=== PATIENT | female | born 1995 | race Caucasian/White ===

== ENCOUNTER 2017-08-04 08:00 | Outpatient (CLI) | payer MEDICAID ==
[2017-08-04 18:53] LABS: BASOPHILS # (AUTO) 0.1 10^3/uL (0.0-0.1); BASOPHILS % (AUTO) 0.5 %; EOSINOPHILS # (AUTO) 0.1 10^3/uL (0.0-0.7); EOSINOPHILS % (AUTO) 0.5 %; HGB - HEMOGLOBIN 11.7 g/dL (12.0-16.0); LYMPHOCYTES # (AUTO) 2.2 10^3/uL (1.5-3.5); LYMPHOCYTES % (AUTO) 15.2 %; MEAN CORPUSCULAR HEMOGLOBIN 29.9 pg (27.0-31.0); MEAN CORPUSCULAR HGB CONC 32.8 g/dL (32.0-36.0); MEAN CORPUSCULAR VOLUME 91.2 fL (81.0-99.0); MEAN PLATELET VOLUME 8.2 fL (7.9-10.8); MONOCYTES # (AUTO) 0.8 10^3/uL (0.0-1.0); MONOCYTES % (AUTO) 5.4 %; NEUTROPHILS # (AUTO) 11.5 10^3/uL (1.5-6.6); NEUTROPHILS % (AUTO) 78.4 %; PLT - PLATELET COUNT 295 10^3/uL (130-450); RED BLOOD COUNT 3.92 10^6/uL (4.20-5.40); RED CELL DISTRIBUTION WIDTH 13.1 % (12.0-15.0); WHITE BLOOD COUNT 14.7 x10^3/uL (4.8-10.8)
[2017-08-04 19:08] LABS: ALBUMIN 3.3 g/dL (3.2-5.5); ALBUMIN/GLOBULIN RATIO 0.9 (1.0-2.2); ALKALINE PHOSPHATASE 103 IU/L (42-121); ALT ALANINE AMINOTRANSFERASE 13 IU/L (10-60); AST ASPARTATE AMINOTRANSFERASE 23 IU/L (10-42); BILIRUBIN,TOTAL 0.5 mg/dL (0.2-1.0); BUN - BLOOD UREA NITROGEN 11 mg/dL (6-20); CALCIUM 9.7 mg/dL (8.5-10.3); CARBON DIOXIDE - CO2 24 mmol/L (21-32); CHLORIDE 101 mmol/L (101-111); CREATININE 0.5 mg/dL (0.4-1.0); GFR - MDRD 154 (>89); GLUCOSE 76 mg/dL (70-100); SODIUM 136 mmol/L (135-145)
== END 2017-08-04 08:01 | disposition home or self-care (01) ==
LOC: LAB.N 08:00
PROVIDERS: ATTEND Family Medicine
DX: Z33.1 Pregnant state, incidental (principal); R03.0 Elevated blood-pressure reading, without diagnosis of hypertension
CPT/HCPCS: 36415; 80053; 84443; 85025

== ENCOUNTER 2017-10-15 12:21 | Emergency (ER) | payer MEDICAID ==
[2017-10-15 12:39] VITALS: BP 147/104
--- NOTE | 2017-10-15 13:40 | ED Physician Documentation ---
History of Present Illness - Stated complaint Stated Complaint: R BREAST PX - Chief complaint Chief Complaint: General - History obtained from History obtained from: Patient - History of Present Illness Timing: Last night Pain level max: 7 Pain level now: 4 Improved by: tylenol Worsened by: nothing - Additonal information Additional information: States R breast pain since last night. Is 6 weeks post . currently breast feeding. Barton chills last night. Vomited x 1. States has headache today as well. Better with tylenol. Review of Systems Constitutional: reports: Fever, Chills Nose: denies: Rhinorrhea / runny nose, Congestion Throat: denies: Sore throat Cardiac: denies: Chest pain / pressure Respiratory: denies: Cough GI: reports: Vomiting Skin: denies: Rash Musculoskeletal: denies: Neck pain, Back pain PD PAST MEDICAL HISTORY - Past Medical History Past Medical History: No - Past Surgical History Past Surgical History: No - Present Medications Home Medications: Ambulatory Orders Medication Instructions Recorded Confirmed Cephalexin [Keflex] 500 mg PO Q6H #40 capsule 10/15/17 - Allergies Allergies/Adverse Reactions: Allergies Allergy/AdvReac Type Severity Reaction Status Date / Time No Known Drug Allergies Allergy Verified 07/20/15 13:25 - Social History Does the pt smoke?: No Smoking Status: Never smoker Does the pt drink ETOH?: No Does the pt have substance abuse?: No - POLST Patient has POLST: No PD ED PE NORMAL - Vitals Vital signs reviewed: Yes - General General: Alert and oriented X 3, No acute distress, Well developed/nourished - HEENT HEENT: PERRL, Moist mucous membranes - Neck Neck: Supple, no meningeal sign - Cardiac Cardiac: RRR, Strong equal pulses - Respiratory Respiratory: No respiratory distress, Clear bilaterally - Abdomen Abdomen: Soft, Non tender, Non distended - Derm Derm: Warm and dry, Other (mild erythema to the R breast. no palpable abscess. ) - Neuro Neuro: Alert and oriented X 3 - Psych Psych: Normal mood, Normal affect Results - Vitals Vitals: Vital Signs - 24 hr 10/15/17 10/15/17 12:37 13:54 Temperature 37.5 C 38.1 C H Heart Rate 109 H Respiratory 16 Rate Blood Pressure 147/104 H O2 Saturation 98 Oxygen O2 Source Room air PD MEDICAL DECISION MAKING - ED course Complexity details: considered differential, d/w patient, d/w family ED course: Patient is a 22-year-old female presents to the emergency department with a right breast mastitis. Will place on Keflex and have her follow-up closely with her [employer]. Will continue breast-feeding. Patient is well-appearing, nontoxic. No evidence of abscess. Patient counseled regarding signs and symptoms for which I believe and urgent re-evaluation would be necessary. Patient with good understanding of and agreement to plan and is comfortable going home at this time This document was made in part using voice recognition software. While efforts are made to proofread this document, sound alike and grammatical errors may occur. Departure - Departure Disposition: 01 Home, Self Care Clinical Impression: Mastitis Condition: Good Instructions: ED Breast Infec Follow-Up: Yesica Newman ARNP [Primary Care Provider] - Within 1 week Prescriptions: Cephalexin [Keflex] 500 mg PO Q6H #40 capsule Comments: Take all antibiotics until gone. Return if you worsen. Continue to breast feed as this will help clear the infection and this is safe for your baby. Discharge Date/Time: 10/15/17 13:57
== END 2017-10-15 13:57 | disposition home or self-care (01) ==
LOC: ED 12:21
DX: N61.0 Mastitis without abscess (principal)
CPT/HCPCS: 99283

== ENCOUNTER 2017-12-09 08:11 | Outpatient (CLI) | payer MEDICAID ==
--- NOTE | 2017-12-09 13:37 | Ultrasound Report ---
EXAM: BLADDER ULTRASOUND, LIMITED EXAM DATE: 12/09/2017 09:49 AM. CLINICAL HISTORY: HX OF UROLITHIASIS, HYPERTENSION. COMPARISON: Previous pelvic ultrasound from 11/21/2015. TECHNIQUE: Real-time scanning was performed with static images obtained. FINDINGS: Prevoid urinary bladder volume is 174, with measurements 4.3 x 8.4 x 9.4 cm. Postvoid, volu me is 0.9 cc, with measurements 1 x 0.7 x 2.6 cm. Bilateral urinary jets were visualized. IMPRESSION: Unremarkable exam of the urinary bladder, without evidence of urolithiasis. [facility] Referring Provider Line: [phone] SITE ID: [id number]
--- NOTE | 2017-12-09 16:00 | Ultrasound Report ---
EXAM: RENAL ARTERY DOPPLER ULTRASOUND EXAM DATE: 12/09/2017 09:49 AM. CLINICAL HISTORY: History of urolithiasis, hypertension. COMPARISON: None. TECHNIQUE: Real-time sonographic vascular imaging was performed by the security and privacy consultant through the renal arterial system with a linear transducer utilizing color-flow, Doppler flow, and spectral analysis. [facility] sales promotion representative static images were saved for review. FINDINGS: Right Kidney: 11.1 x 5.0 x 5.3 cm. There is diffuse increased echogenicity of the renal medullary pyr amids. No stones, contour-deforming masses, or hydronephrosis. Left Kidney: 11.3 x 5.7 x 5.2 cm. There is diffuse increased echogenicity of the renal medullary pyra mids. There is mild hydronephrosis. Multiple tiny nonobstructing calyceal calculi are present. Right renal Doppler: Right Segmental Artery: Upper pole: PSV 52 cm/sec, RI 0.59. Mid pole: PSV 71 cm/sec, RI 0.63. Lower pole: PSV 76 cm/sec, RI 0.65. Right Renal Artery: Origin: PSV 157 cm/sec, RA/AO 0.78. Proximal: PSV 154 cm/sec, RA/AO 0.76. Mid: PSV 112 cm/sec, RA/AO 0.55. Distal: PSV 137 cm/sec, RA/AO 0.68. Aorta PSV: 201 cm/sec. RRV Patent: Yes. Left renal Doppler: Left Segmental Artery: Upper pole: PSV 55 cm/sec, RI 0.60. Mid pole: PSV 54 cm/sec, RI 0.56. Lower pole: PSV 59 cm/sec, RI 0.57. Left Renal Artery: Origin: PSV 91 cm/sec, RA/AO 0.45. Proximal: PSV 140 cm/sec, RA/AO 0.69. Mid: PSV 131 cm/sec, RA/AO 0.65. Distal: PSV 101 cm/sec, RA/AO 0.50. LRV Patent: Yes. IMPRESSION: 1. Diffuse increased echogenicity of the renal medullary pyramids bilaterally. 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 Various metabolic diseases are also in the differential. 2. Mild left-sided hydronephrosis with multiple small nonobstructing calyceal calculi. 3. Normal Doppler ultrasound of the renal arteries. No evidence of renal arterial stenosis. CRITERIA FOR CLASSIFICATION OF RENAL ARTERY (RA) DISEASE BY DUPLEX SCANNING: RA Diameter Reduction/ RA PSV/ RAR: Normal, < 180 cm/sec, < 3.5 < 60%, >= 180 cm/sec, < 3.5 >= 60%, >= 180 cm/sec, >= 3.5 Total Occlusion: Undetectable; Not applicable JAYLA Referring Provider Line: [phone] SITE ID: [id number]
== END 2017-12-09 08:12 | disposition home or self-care (01) ==
LOC: DI 08:11
PROVIDERS: ATTEND Family Medicine
DX: N13.2 Hydronephrosis with renal and ureteral calculous obstruction (principal)
CPT/HCPCS: 76857; 93975

== ENCOUNTER 2019-04-01 14:37 | Outpatient (CLI) | payer MEDICAID ==
[2019-04-01 16:03] LABS: THYROID STIMULATING HORMONE 1.14 uIU/mL (0.34-5.60)
[2019-04-01 16:05] LABS: FREE T4 (FREE THYROXINE) 0.98 ng/dL (0.58-1.64)
[2019-04-01 16:09] LABS: PROLACTIN 12.22 ng/mL
[2019-04-01 16:31] LABS: FOLLICLE STIMULATING HORMONE 5.52 mIU/mL
[2019-04-02 06:47] LABS: ESTRADIOL 43 pg/mL
== END 2019-04-01 14:38 | disposition home or self-care (01) ==
LOC: LAB 14:37
PROVIDERS: ATTEND Obstetrics & Gynecology
DX: N91.1 Secondary amenorrhea (principal)
CPT/HCPCS: 36415; 82626; 82670; 83001; 84146; 84403; 84439; 84443

== ENCOUNTER 2019-05-12 11:15 | Outpatient (CLI) | payer MEDICAID ==
--- NOTE | 2019-05-12 14:37 | Ultrasound Report ---
Reason: POSTIVE TEST Procedure Date: 05/12/2019 Accession Number: [id number] / [id number] Procedure: US - OB First Trimester CPT Code: Final Report FULL RESULT: EXAM: FIRST TRIMESTER OBSTETRIC ULTRASOUND (Less than 11 weeks) EXAM DATE: 05/12/2019 12:03 PM. CLINICAL HISTORY: POSITIVE TEST. LMP: Unknown. COMPARISONS: None available. TECHNIQUE: Transabdominal and transvaginal ultrasound examination with static image documentation. CLINICAL DATES: Cannot estimate because of uncertain LMP ASSESSMENT: Gestational Sac: Single intrauterine. Mean gestational sac diameter: 10.7 mm = 5 weeks 6 days. Embryo: CRL (crown-rump length) 2.5 mm = out of range. Cardiac activity: Visually present but not measurable beats per minute. Yolk sac: 3.9 mm. Amniotic fluid: Not accurately assessed at this gestational age. Early placenta: Not visible at this gestational age. Other: There is a right perigestational collection measuring 2.8 x 0.7 x 0.5 cm. MATERNAL STRUCTURES: Uterus: Appears anteverted and retroflexed. Unremarkable. Cervix: Closed. Right Ovary/Adnexa: The ovary measures 2.8 x 2.1 x 2.1 cm, volume 6.5 cc. Unremarkable. Left Ovary/Adnexa: The ovary measures 3.9 x 2.4 x 2.4 cm, volume 11.6 cc. A presumed corpus luteum measures 2.2 x 1.7 x 1.9 cm. Free Fluid: Trace adnexal fluid. Other: None. IMPRESSION: 1. Single viable intrauterine at EGA 5 weeks 6 days with KARO 01/06/2020 based on crown-rump length. 2. A heart rate is present on visual analysis, but not measurable. Suggest follow-up. 3. There is a 2.8 x 0.7 x 0.5 cm right perigestational collection. [facility]
== END 2019-05-12 11:16 | disposition home or self-care (01) ==
LOC: DI 11:15
PROVIDERS: ATTEND Midwife
DX: Z36.87 Encounter for antenatal screening for uncertain dates (principal)
CPT/HCPCS: 76801

== ENCOUNTER 2021-04-26 19:02 | Outpatient (CLI) | payer MEDICAID | END 2021-04-26 19:03 | disposition home or self-care (01) | LOC: COV 19:02 | PROVIDERS: ATTEND Family Medicine | DX: R05.9 Cough, unspecified (principal); R07.0 Pain in throat; R09.81 Nasal congestion; J34.89 Other specified disorders of nose and nasal sinuses; Z20.822 Contact with and (suspected) exposure to COVID-19 ==